=== PATIENT | male | born 1960 | race Caucasian/White ===

== ENCOUNTER 2025-10-22 08:45 | Day surgery (SDC) | payer MEDICARE, BC, SELFPAY ==
--- OUTSIDE RECORDS SUMMARY | 2025-08-05 09:58 | XMS_ITS | Continuity of Care Document ---
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 Role Phone Zen Cordoba MD Unavailable Unavailable Allergies, Adverse Reactions, Alerts Substance Reaction Status Criticality No Known Allergies Active No Inform ation Medications Medication Instructions Dosage Effective Dates (start - stop) Status Comments rosuvastatin 20 mg tablet take 1 tablet by oral route every day 20 MG - Active metoprolol succinate ER 25 mg tablet,extended release 24 hr take 1 tablet by oral route every day 25 MG - Active Repatha SureClick 140 mg/mL subcutaneous pen injector inject 1 milliliter by subcutaneous route every 2 weeks in the abdomen, thigh, or outer area of upper arm (rotate sites) 140 MG - Active isosorbide dinitrate 30 mg tablet take 1 tablet by oral route every day 30 MG - Active ezetimibe 10 mg tablet take 1 tablet by oral route every day 10 MG - Active aspirin 81 mg tablet,delayed release take 1 tablet by oral route every day 81 MG - Active Procedures Procedure Date Established Level 4 Moderate Colonoscopy Flex; W/remov Les- Colonoscopy Flex; W/bx 1/mx Ugi Endo; W/bx 1/mx Level Iv-surg Path Gross/micro Established Level 5 High Complex e/m visit add on Colonoscopy Flex; Dx (sep Pro) Advance Directives Directive Yes / No Effective Date File Name No Information Encounters Encounter Description Practice Location Reason(s) For Visit Diagnoses Date Provider Providers Copied on Encounter [facility], [address] [address], [place], [id number], [place] tel:[phone] [facility] No Information 5 Adalid Zaldivar. [address] [facility], [facility] [address], [place], [id number], [place]. tel:[phone] Established Level 4 Moderate [facility], [address] [address], [place], [id number], [place] tel:[phone] [facility] GI Symptoms or Concerns (chief complaint) Kenny's esophagus without dysplasiaGastro- esophageal reflux disease without esophagitisUnspe cified abdominal painRLQ abdominal pain 5 Adalid Zaldivar. [address] [facility], [facility] [address], [place], [id number], [place]. tel:[phone] Referring Provider: Referral Self, USE FOR SELF REFERRALS. [facility], [address] [address], [place], [id number], [place] tel:[phone] [facility] GI Symptoms or Concerns (chief complaint) Other fecal abnormalitiesUns pecified abdominal painGastro-esoph ageal reflux disease without esophagitisBenig n neoplasm of ascending colonBenign neoplasm of transverse colonBarrett's esophagus without dysplasiaEncount er for screening colonoscopy 5 Adalid Zaldivar. [address] [facility], [facility] [address], [place], [id number], [place]. tel:[phone] Referring Provider: Referral Self, USE FOR SELF REFERRALS. Established Level 5 High [facility], [address] [address], [place], [id number], [place] tel:[phone] [facility] GI Symptoms or Concerns (chief complaint) Abdominal pain, unspecified abdominal locationLoose stoolsChronic GERDPancreatic abnormality 5 Annie Donis. [address] [facility], [facility] [address], [place], [place], [id number], [place]. [phone] Referring Provider: Travis Nielsen, [address] [facility] [address], [place], [address]. tel:[phone] [facility], [address] [address], [place], [id number], [place] tel:[phone] [place] [address] No Information 5 Homer Nuno. [address] [facility], [facility] [address], [place], [id number], [place]. [phone] [facility], [address] [address], [place], [address], [place] tel:[phone] [facility] Personal history of colonic polypsFamily history of colon cancerEncounter for screening for malignant neoplasm of colonFamily history of malignant neoplasm of digestive organsPersonal history of colonic polyps 0 No Information Referring Provider: Travis Nielsen, [address] [facility] [address], [place], [address]. tel:[phone] [facility], [address] [address], [place], [id number], [place] tel:[phone] [facility] No Information 0 Mindy Sinha. [address] [facility], [facility] [address], [place], [id number], [place]. tel:[phone] Family History Family Member Type Diagnosis Age At Onset Mother Problem (finding) Cancer, colon Mother Problem (finding) Colon polyps Immunizations Vaccine Date Status Comments SARS-COV-2 (COVID-19) vaccin e, mRNA, spike protein, LNP, preservative free, iraida-sucrose, 30 mcg/0.3 mL dose administered Note: [facility] bi-direct ional interface ; Source: Other Registry Influenza, high-dose, split virus, trivalent, injectable, preservative free administered Note: [facility] bi-direct ional interface ; Source: Other Registry Respiratory syncytial virus (RSV), vaccine, bivalent, protein subunit RSV prefusion F, diluent reconstituted, 0.5 mL, preservative free administered Note: [facility] bi-direct ional interface ; Source: Other Registry Influenza, Madin Sheila Canin e Kidney, subunit, quadrivalent, injectable, preservative free administered Note: [facility] bi-directional interface ; Source: Other Registry Afluria Qd administered Note: [facility] bi-directional interface ; Source: Other Registry zoster vaccine recombinant administered N ote: [facility] bi-directional interface ; Source: Other Registry SARS-COV-2 (COVID-19) vaccin e, mRNA, spike protein, LNP, preservative free, 100 mcg/0.5mL dose or 50 mcg/0.25mL dose administered Note: [facility] bi -directional interface ; Source: Other Registry zoster vaccine recombinant administered N ote: [facility] bi-directional interface ; Source: Other Registry Influenza, recombinant, quadrivalent, injectable, preservative free administered Note: [facility] bi-direct ional interface ; Source: Other Registry SARS-COV-2 (COVID-19) vaccin e, mRNA, spike protein, LNP, preservative free, 100 mcg/0.5mL dose or 50 mcg/0.25mL dose administered Note: [facility] bi -directional interface ; Source: Other Registry SARS-COV-2 (COVID-19) vaccin e, mRNA, spike protein, LNP, preservative free, 100 mcg/0.5mL dose or 50 mcg/0.25mL dose administered Note: [facility] bi -directional interface ; Source: Other Registry SARS-COV-2 (COVID-19) vaccin e, mRNA, spike protein, LNP, preservative free, 100 mcg/0.5mL dose or 50 mcg/0.25mL dose administered Note: [facility] bi -directional interface ; Source: Other Registry Afluria Qd administered Note: [facility] bi-directional interface ; Source: Other Registry Afluria Qd administered Note: [facility] bi-directional interface ; Source: Other Registry Fluzone Quad 6mo or older administered Note: [facility] bi-direct ional interface ; Source: Other Registry tetanus and diphtheria toxoi ds, adsorbed, preservative free, for adult use (5 Lf of tetanus toxoid and 2 Lf of diphtheria toxoid) administered Note: [facility] bi-direct ional interface ; Source: Other Registry tetanus toxoid, reduced diphtheria toxoid, and acellular pertussis vaccine, adsorbed administered Note: [facility] b i-directional interface ; Source: Other Registry tetanus and diphtheria toxoi ds, adsorbed, preservative free, for adult use (5 Lf of tetanus toxoid and 2 Lf of diphtheria toxoid) administered Note: [facility] bi-direct ional interface ; Source: Other Registry Payers Payer name Insurance type Covered democrat ID Authoriza tion(s) No Information Social History Type Description Quantity Date Captured Comments Sex Male Smoking Status No Information Chief Complaint And Reason For Visit No Information Reason For Referral Reason For Referral No Information Plan Of Treatment Date Type Action Status Referral Ordered: follow-up visit after workup Appointment date/timeframe: after workup ordered History Of Present Illness Encounter Date Complaint History Of Prese nt Illness GI Symptoms or Concerns This is a 65-year-old man who presents in follow up for reflux and heartburn.He was previously seen by one of my partners. In April of this year, he presented with abdominal pain and loose stool. He underwent assessment, which included ultrasound in January with possible steatosis of the liver, CT with 1.5 cm non-enhancing mass in the pancreatic tail. 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 His upper endoscopy was remarkable only for 1 cm of salmon-like change in the distal esophagus suspicious for Kenny's. He does have a long history of reflux and tells me he has been on omeprazole 20 mg for at least 5 years, possibly longer. His breakthrough symptoms are rare and generally characterized by heartburn, worse at night and when lying flat, but again occur maybe a few times per year.He continues to have right lower quadrant pain that radiates to flank and sometimes worsened with activity such as golfing or working on a ladder, but then again at times improves at times with bowel movements. GI Symptoms or Concerns GI Symptoms or Concerns Mike is a pleasant 64-year-old male who is seen for evaluation of abdominal pain, loose stool, pancreatic imaging abnormality.The patient was in his usual state of health until end of December when he developed onset of abdominal pain. This is localized to his right middle, lower abdomen. He saw his primary care doctor who initially ordered an ultrasound and labs which were unrevealing. Subsequent CT of the abdomen demonstrated a possible pancreatic mass prompting MRI. 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 He is planned for SPECT-CT upcoming to further evaluate. He describes abdominal pain as localized to his right middle, lower abdomen. Pain is constant but worse in the morning. It can sometimes radiate around his back, dull, 4 out of 10. No change with intake of food. It is better when urinating, passing gas, passing a bowel movement. He has chronic loose stool with 3-4 bowel movements per day. This preceded onset of pain and has been present for several years. Stools can be urgent. No incontinence or nocturnal stools. No black or bloody stool.He has chronic GERD over the last many years for which he has used omeprazole 20 mg daily with improvement. He does not have breakthrough symptoms unless he misses a dose.He otherwise denies fevers, chills, weight loss, nausea, vomiting, black or bloody stool, dysphagia, odynophagia.Prior workup is reviewed– No prior upper endoscopy Colonoscopy 08/15/2020 notable for a normal exam. Recommended for repeat in 5 years. Ultrasound 02/19/2025 notable for normal biliary tract. No gallstones or changes of cholecystitis. Normal bile ducts. Suspected slight degree of diffuse fatty infiltration of the liver without hepatomegaly or hepatic cirrhosis. Elsewhere, no solid abdominal organ abnormality. Limited use of pancreas. Spleen not seen, but not enlarged. CT abdomen and pelvis with contrast 03/26/2025 notable for 1. Nonobstructing 3 mm intrarenal calculus. 2. Possible 1.5 cm enhancing mass in the pancreas tail. Recommend further evaluation with pancreas protocol MRI. 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 This could be confirmed with nuclear medicine SPECT CT.Past medical historyCoronary artery disease status post CABG, hyperlipidemia, obesity, GERD, adenomatous polyps, pancreatic finding as abovePast surgical historyNo prior abdominal surgeriesMedicationsRosuvastatin, Repatha, aspirin 81, isosorbide, ezetimibe, metoprolol, omeprazole 20Social historyNo toxic habits. He is retired, with 2 children.Family historyMom with colon cancer at age 45. Functional Status Date Functional Assessmen t No Information Instructions Date Instruction Additional Infor tai - Repeat EGD in one year for BE surveillance - Continue omeprazole 20mg once daily 30m prior to breakfast - Add Miralax 8.5g oral powder once per day Related to Kenny's esophagus without dysplasia Colon Cancer Prevention Related to Unspecified abdominal pain Colon Polyps Related to Unspe cified abdominal pain Diverticulosis/Diverticulitis Re lated to Unspecified abdominal pain Hemorrhoids (Internal) Related t o Unspecified abdominal pain Gastroesophageal Reflux Disease Related to Chronic GERD High Fiber Diet Related to Loose stools Assessments Type Assessment Date No Information Patient Care Teams Name Effective Dates (start - stop) Status Members No Information
[2025-10-22] VITALS (17 sets, daily range): BP systolic 116–147; BP diastolic 67–91; PULSE 70–88; RESP 12–18; TEMP 36.3–36.8; O2SAT 94–98; BMI 28.7
--- NOTE | 2025-10-22 09:27 | ED_ITS ---
HPI - Abdominal Pain General Chief Complaint: Abdominal Pain Stated Complaint: Abdominal pain Time Seen by Provider: 10/22/25 08:58 History of Present Illness HPI narrative: This 65-year-old male comes in reporting right-sided abdominal pain that comes and goes over the past month or so. He states that the pain at times has been very severe and lasting for a few hours. He thinks that it may be related to taking food. He reports the pain in the right side of his abdomen. He states that he did have an ultrasound 6 or 7 months ago which was negative for gallstones. He also had a couple CT scans and MRI and there was no significant finding. CT scan initially back then had some suspicion of a pancreatic mass but MRI showed accessory splenic tissue in this area and was benign. The patient does not report any fevers or altered bowel function. He is otherwise healthy. He states that he is currently having pain but not as severe as it has been in the recent past. He reports that the pain is worse with taking a deep breath. Related Data Allergies Allergy/AdvReac Type Severity Reaction Status Date / Time No Known Drug Allergies Allergy Verified 10/22/25 08:56 Review of Systems Status of ROS Reports: 10 or more systems reviewed and unremarkable except as noted in History and below Narrative Constitutional: No fevers, no weight gain or loss. Eyes: No discharge. No vision changes. HENT: No congestion, no sore throat, no ear pain. Cardiovascular: No chest pain, no palpitations. Respiratory: No shortness of breath, no wheezes, no cough. Gastrointestinal: No vomiting, no diarrhea. Abdominal pain as described above. Genitourinary: No dysuria, no hematuria. Musculoskeletal: Normal range of motion. Skin: No rashes, no pruritis. Neurological: No dizziness, weakness, sensory change, speech change. Endo/Heme/Allergies: No bruising or bleeding. No polydipsia. Pysch: no suicidality, no anxiety, no insomnia. All other systems reviewed and are negative. PFSH PFS Social History Smoking Status: Never smoker Do you use any of these nicotine containing products: None Second hand tobacco smoke exposure: No How often do you have a drink containing alcohol: never AUDIT-C Alcohol total score: 0 Non-prescribed substance use: denies use Exam Narrative: Exam Narrative: Constitutional: Well-developed, well-nourished, no acute distress. HEENT: Normocephalic, atraumatic. Neck: Normal range of motion. Nontender. Supple. Heart: Regular. No murmurs. Normal rate. Intact distal pulses. Lungs: Clear to auscultation. No chest discomfort. No wheezes, rhonchi, or rales. Abdomen: Normal bowel sounds. Tenderness in the right abdomen. Rebound tenderness is present. No particular pain at McBurney's point in the right lower quadrant. Genitalia: Deferred. Back: No midline tenderness. Normal range of motion. Extremities: Normal range of motion. No injury. Skin: Intact. No rash. Warm. No erythema or pallor. Neurologic: No altered sensation. No weakness. Alert and oriented. Psychiatric: No suicidality. No anxiety or depression. No insomnia. Nursing notes and vitals signs are reviewed. Const: Vital Signs, click to edit/add: Vital Signs - 24 hr 10/22/25 08:53 Temperature 97.5 F L Pulse Rate [Pulse Oximeter] 85 Respiratory Rate 18 Blood Pressure [Ri ght Upper Arm] 144/86 H Pulse Oximetry 98 Oxygen Delivery Me thod Room Air Course Vital Signs Vital signs: Initial Vital Signs Temperature 97.5 F L 10/22/25 08:53 Temperature Source Temporal Artery Scan 10/22/25 08:53 Pulse Rate 85 10/22/25 08:53 Pulse Rhythm Regular 10/22/25 08:53 Pulse Strength 3+ Normal 10/22/25 08:53 Respiratory Rate 18 10/22/25 08:53 Blood Pressure 144/86 H 10/22/25 08:53 Blood Pressure Mean 105 10/22/25 08:53 Blood Pressure Position Sitting 10/22/25 08:53 Pulse Oximetry 98 10/22/25 08:53 Oxygen Delivery Method Room Air 10/22/25 08:53 Vital Signs Temperature 97.5 F L 10/22/25 08:53 Pulse Rate 85 10/22/25 08:53 Respiratory Rate 18 10/22/25 08:53 Blood Pressure 144/86 H 10/22/25 08:53 Pulse Oximetry 98 10/22/25 08:53 Oxygen Delivery Method Room Air 10/22/25 08:53 Temperature 97.5 F L 10/22/25 08:53 Pulse Rate 85 10/22/25 08:53 Respiratory Rate 18 10/22/25 08:53 Blood Pressure 144/86 H 10/22/25 08:53 Pulse Oximetry 98 10/22/25 08:53 Oxygen Delivery Method Room Air 10/22/25 08:53 MDM - Abdominal Pain MDM Narrative Medical decision making narrative: This 65-year-old male comes in with right upper quadrant abdominal pain as described above. Ultrasound does show evidence of stones and sludge with a gallbladder wall that is thickened at around 6 mm. This is typical of cholecystitis. Labs are acquired and these returned with normal findings. He does not have any leukocytosis or elevated liver enzymes or elevated lipase. I did speak with Dr. Thompson, surgeon on-call who will arrange for cholecystectomy in the next couple hours. Lab Data Labs: Lab Results 10/22/25 Range/Units 11:00 WBC 9.08 (4.50-11.00) K/uL RBC 4.13 L (4.30-5.90) m/uL Hgb 12.3 L (13.5-17.5) gm/dL Hct 38.2 (37.0-53.0) % MCV 93 (80-100) fL MCH 30 (26-34) pg MCHC 32 (32-36) gm/dL RDW Coeff of Angela 13.0 (11.5-15.5) % Plt Count 212 (140-440) K/uL Neut % (Auto) 78.2 H (42.0-72.0) % Lymph % (Auto) 10.8 L (20-44) % [place] % (Auto) 9.1 (0.0-11.0) % Eos % (Auto) 1.8 (0.0-7.0) % Baso % (Auto) 0.1 (0.0-3.0) % Neut # (Auto) 7.10 H (1.7-7.0) K/uL Lymph # (Auto) 1.00 (0.90-2.90) K/uL [place] # (Auto) 0.80 (0.00-0.90) K/UL Eos # (Auto) 0.16 (0.00-0.50) K/uL Baso # (Auto) 0.01 (0.00-0.30) K/uL Abs Immat Gran (auto) 0.00 (0.00-0.30) K/uL Imm/Tot Granulo (auto) 0.0 % Total Bilirubin 1.5 (0.1-1.5) mg/dL Direct Bilirubin 0.3 (0.0-0.5) mg/dL AST 21 (12-35) U/L ALT 22 (4-50) U/L Alkaline Phosphatase 68 (40-150) U/L Total Protein 7.3 (6.0-8.3) g/dL Albumin 4.2 (3.3-5.0) g/dL Lipase 106 (23-300) U/L Discharge Plan Discharge Clinical Impression: Acute cholecystitis Patient Disposition: XFER to OR Condition: Unchanged Instructions: General Anesthesia (DC), NH+C Post-Operative Instructions: Laparoscopic Cholecystectomy Follow Up/Referrals: Provider,Not a Local [Primary Care Provider, Family Practice]
--- NOTE | 2025-10-22 09:27 | CRLHL7_ITS ---
For Patients: As a result of the Century Cures Act, medical imaging exams and procedure reports are released immediately into your electronic medical record. You may view this report before your referring provider. If you have questions, please contact your health care provider. Indication: Right upper quadrant abdominal pain. Technique: Sonography of the abdomen was performed. Technical limitation due to overlying bowel gas. Comparison: None Findings: The gallbladder wall is thickened at 6.4 millimeters. Intramural edema. No pericholecystic fluid. Sludge and small stones noted. The common duct measures 3 millimeters which is normal The liver measures 15.1 centimeters. Echogenicity is normal. Hepatic cysts are noted the largest of which measures 1.3 centimeters in greatest dimension. The pancreas is poorly seen due to overlying bowel gas. The right kidney is unremarkable in size and appearance measuring 10.7 x 7.0 x 5.8 centimeters. The aorta as visualized appears normal. No ascites. There was a positive sonographic Rinaldi`s sign The main portal vein is patent with appropriate directional flow Impression: Gallbladder wall thickening at 6.4 millimeters with intramural edema, stones and sludge. No pericholecystic fluid. No biliary ductal dilation. There was a reported sonographic Rinaldi sign. The findings are suspicious for acute cholecystitis in the appropriate clinical setting. Dictated by Yaakov Maria MD @ 10/22/2025 10:31:33 AM (Electronically Signed)
--- OUTSIDE RECORDS SUMMARY | 2025-10-22 09:57 | XMS_ITS | Clinical Summary ---
Author Organization [facility] Address [address] [place] [address] Care Team Providers Care Correctional Supply Supervisor Name Role Phone Cristofer Paredes MD Unavailable [phone] Ector Black MD Primary Care Provider [phone] [facility] Unavailable Eliseo Barron MD Unavailable [phone] Allergies No known active allergies Medications MedicationSigDispense QuantityRefillsLast FilledStart DateEnd DateStatus aspirin 81 mg oral enteric coated tablet Take 1 tablet (81 mg) by mouth once daily.Active Omeprazole 20 mg oral TbEC Take 20 mg by mouth once daily.Active fluticasone (FLONASE) 50 mcg/actuation nasal spray Instill 1 spray into EACH nare once daily.Active nitroGLYCERIN (NITROSTAT) 0.4 mg sublingual tablet Indications:Abnormal stress ECGTake 1 tablet (0.4 mg) under the tongue every 5 (five) minutes as needed for chest pain. 25 tablet 2Active evolocumab (REPATHA SURECLICK) 140 mg/mL SubQ PnIj Indications:Hyperlipidemia, unspecified hyperlipidemia typeInject 1 mL (140 mg) under the skin every 14 (fourteen) days. Requires annual fasting cholesterol la b. 2 mL 5Active metoprolol succinate, XL, (TOPROL XL) 25 mg oral extended release tablet 24 HR Take 1 tablet (25 mg) by mouth once daily. 90 tablet 5Active rosuvastatin (CRESTOR) 20 mg oral tablet Take 1 tablet (20 mg) by mouth once daily. 90 tablet 5Active evolocumab 140 mg/mL SubQ PnIj Indications:Pure hypercholesterolemiaInject 1 mL (140 mg) under the skin every 14 (fourteen) days. 6 mL 5Active isosorbide mononitrate (IMDUR) 30 mg oral extended release tablet 24 HR Indications:Coronary artery disease involving samish coronary artery of samish heart without angina pectoris,Chest pain, unspecified typeTAKE 1 TABLET BY MOUTH ONCE DAILY 90 tablet 5Active ezetimibe (ZETIA) 10 mg oral tablet TAKE 1 TABLET BY MOUTH ONCE DAILY 90 tablet 5Active Active Problems ProblemNoted DateDiagnosed DateCAD in samish mdwdox4306/08/2021hest pain, unspecified type05/24/2021 Overview (05/24/2021): Added automatically from request for surgery [id number] Abnormal stress test05/24/2021 Overview (05/24/2021): Added automatically from request for surgery [id number] S/P CABG x HLD (hyperlipidemia)02/09/2021oronary artery disease involving samish coronary artery of samish heart without angina pectoris 02/09/2021 Resolved Problems ProblemNoted DateDiagnosed DateResolved DateUnstable angina /24/2021 12/28/2020 Family History Medical HistoryRelationCommentsHeart DiseaseFatherColon CancerMotherRelation StatusCommentsFatherDeceasedMotherDeceased Social History Tobacco UseTypesPacks/DayYears UsedDateSmoking Tobacco: FormerCigarettesQuit: 2003Smokeless Tobacco: FormerQuit: 2003 Tobacco Cessation:Counseling Given: No Alcohol UseStandard Drinks/WeekCommentsYes0 (1 standard drink = 0.6 oz pure alcohol)2-3 per daySex and Gender InformationValueDate RecordedSex Assigned at BirthNot on fileLegal QqdXnfn1102/16/2013 3:46 AM CDTGender IdentityNot on file Sexual OrientationNot on file Last Filed Vital Signs Vital SignReadingTime TakenCommentsBlood Vfyhhrka460/6607 2:15 PM CDT Lmicr207805/24/2025 2:15 PM XWISgqedzdqgpn26.6 ??C (97.9 ??F)06/09/2021 11:07 AM CDTRespiratory Fvpj090406/09/2021 11:07 AM CDTOxygen Kqfbggncne22%02/11/2023 1:59 PM CDTInhaled Oxygen Concentration--Beyifo18.8 kg (195 lb 11.2 oz)03/10/2024 8:18 AM MTGEasjre801.3 cm (5' 9)05/24/2025 2:15 PM CDTBody Mass Index28.9 02/11/2023 1:59 PM CDT Plan of Treatment Health MaintenanceDue DateLast DoneCommentsAAA Ultrasound Oppdvzptq1960 Hepatitis C Wkcclzpsb1960Medicare Wellness Visit1960Depression Assessment (PHQ-2)1Pneumococcal 50+ Years (1 of 2 - PCV)1979 Yearly Review of HCD, 12/21/2020OVID-19 Vaccine (2 - 2024- season)/05/2024Influenza Vaccine (#1)509/, 07/11/2022, 11/24/2020, Additional history jlryxyJowjatojqtu87/04/202610/01/2016 Adult Tetanus Hbhbatj34/01/2019, 03/18/2009, 10/28/1998Zoster Vaccine Vackucmvq32/31/2022, 10/13/2021SV ZdrzmvhbVxxxeffon05/14/2023Meningococcal B VaccineAged OutNo longer eligible based on patient's age to complete this topic Medical Devices ImplantedTypeAreaManufacturerDevice IdentifierShelf Expiration DateModel / Serial / LotSynergy 2.5 X 8 - [id number] Implanted:Qty: 1 on 06/08/2021 [facility] [id number] / / [id number] Closure Device 6-7fr - [id number] Implanted:Qty: 1 on 06/08/2021 by Gel[facility]ly[facility]/A: [facility] [place] [id number] / NA / Procedures Procedure NamePriorityDate/TimeAssociated DiagnosisCommentsASC COLONOSOPYRoutine 07/31/2016 11:32 AM CDT from Last 3 Months or Most Recently Relevant to Health Maintenance Results * ASC Colonoscopy (07/31/2016 11:32 AM CDT)Specimen (Source)Anatomical Location / LateralityCollection Method / VolumeCollection TimeReceived Time07/31/2016 11:32 AM CDT Narrative TEST - 07/31/2016 12:12 PM CDT [facility] Patient Name: Mike Arechiga Procedure Date: 07/31/2016 11:32 AM Date of : 1960 Note Status: Finalized Attending MD: LG TIWARI MD Procedure: ? Colonoscopy Indications: ? High risk colon cancer surveillance: Personal history of colonic polyps Patient Profile: ? Last Colonoscopy: more than 3 years ago. Providers: ? LG TIWARI MD, MARCIA GUPTA RN Referring MD: ? ECTOR BLACK Medicines: ? Midazolam 4 mg IV, Fentanyl 100 micrograms IV Complications: ? No immediate complications. Procedure: ? Pre-Anesthesia Assessment: ? - Prior to the procedure, a History and Physical was performed, and ? patient medications and allergies were reviewed. The patient is ? competent. The risks and benefits of the procedure and the sedation ? options and risks were discussed with the patient. All questions were ? answered and informed consent was obtained. Patient identification and ? proposed procedure were verified by the physician in the pre-procedure ? area. Mental Status Examination: alert and oriented. Airway Examination: ? normal oropharyngeal airway and neck mobility. Respiratory Examination: ? clear to auscultation. CV Examination: normal. Prophylactic Antibiotics: ? The patient does not require prophylactic antibiotics. Prior ? Anticoagulants: The patient has taken no previous anticoagulant or ? antiplatelet agents. ASA Grade Assessment: II - A patient with mild ? systemic disease. After reviewing the risks and benefits, the patient ? was deemed in satisfactory condition to undergo the procedure. The ? anesthesia plan was to use minimal sedation / analgesia (anxiolysis). ? Immediately prior to administration of medications, the patient was ? re-assessed for adequacy to receive sedatives. The heart rate, ? respiratory rate, oxygen saturations, blood pressure, adequacy of ? pulmonary ventilation, and response to care were monitored throughout ? the procedure. The physical status of the patient was re-assessed after ? the procedure. ? - This assessment was completed at 00:10 AM, prior to the administration ? of sedation. ? After I obtained informed consent, the scope was passed under direct ? vision. Throughout the procedure, the patient's blood pressure, pulse, ? and oxygen saturations were monitored continuously. The Colonoscope was ? introduced through the anus and advanced to the terminal ileum. The ? colonoscopy was performed without difficulty. The patient tolerated the ? procedure well. The quality of the bowel preparation was good. Findings: ? The perianal and digital rectal examinations were normal. ? A 5 mm polyp was found in the transverse colon. The polyp was sessile. ? The polyp was removed with a cold biopsy forceps. Resection and ? retrieval were complete. ? A 8 mm polyp was found in the transverse colon. The polyp was sessile. ? The polyp was removed with a cold snare. Resection and retrieval were ? complete. ? Two sessile polyps were found in the rectum. The polyps were 5 mm in ? size. These polyps were removed with a cold biopsy forceps. Resection ? and retrieval were complete. ? Multiple small and large-mouthed diverticula were found in the sigmoid ? colon. ? Multiple small internal hemorrhoids. Impression: ? - One 5 mm polyp in the transverse colon. Resected and retrieved. ? - One 8 mm polyp in the transverse colon. Resected and retrieved. ? - Two 5 mm polyps in the rectum. Resected and retrieved. ? - Diverticulosis in the sigmoid colon. Recommendation: ? - High Fiber diet. ? - I will contact with biopsy results in 1-2 weeks. Please contact my ? office at [phone] for any questions. ? - Repeat colonoscopy in 5 years for surveillance. ? - Return to referring physician Marti TIWARI MD 07/31/2016 12:11:59 PM This report has been signed electronically.LG TIWARI MD Number of Addenda: 0 Note Initiated On: 07/31/2016 11:32 AM ? [address] [address], [address], [place] [address] Procedure Note Lg Tiwari MD - 07/31/2016 [facility] Patient Name: Mike Arechiga Procedure Date: 07/31/2016 11:32 AM Date of : 1960 Note Status: Finalized Attending MD: LG TIWARI MD Procedure: Colonoscopy Indications: High risk colon cancer surveillance: Personal history of colonicpolyps Patient Profile: Last Colonoscopy: more than 3 years ago. Providers: LG TIWARI MD, MARCIA GUPTA RN Referring MD: ECTOR BLACK Medicines: Midazolam 4 mg IV, Fentanyl 100 micrograms IV Complications: No immediate complications. Procedure: Pre-Anesthesia Assessment: - Prior to the procedure, a History and Physical was performed, and patient medications and allergies were reviewed. The patient is competent. The risks and benefits of the procedure and the sedation options and risks were discussed with the patient. All questions were answered and informed consent was obtained. Patient identificationand proposed procedure were verified by the physician in thepre-procedure area. Mental Status Examination: alert and oriented. AirwayExamination: normal oropharyngeal airway and neck mobility. RespiratoryExamination: clear to auscultation. CV Examination: normal. ProphylacticAntibiotics: The patient does not require prophylactic antibiotics. Prior Anticoagulants: The patient has taken no previous anticoagulant or antiplatelet agents. ASA Grade Assessment: II - A patient with mild systemic disease. After reviewing the risks and benefits, the patient was deemed in satisfactory condition to undergo the procedure. The anesthesia plan was to use minimal sedation / analgesia (anxiolysis). Immediately prior to administration of medications, the patient was re-assessed for adequacy to receive sedatives. The heart rate, respiratory rate, oxygen saturations, blood pressure, adequacy of pulmonary ventilation, and response to care were monitored throughout the procedure. The physical status of the patient was re-assessedafter the procedure. - This assessment was completed at 00:10 AM, prior to theadministration of sedation. After I obtained informed consent, the scope was passed under direct vision. Throughout the procedure, the patient's blood pressure,pulse, and oxygen saturations were monitored continuously. The Colonoscopewas introduced through the anus and advanced to the terminal ileum. The colonoscopy was performed without difficulty. The patient toleratedthe procedure well. The quality of the bowel preparation was good. Findings: The perianal and digital rectal examinations were normal. A 5 mm polyp was found in the transverse colon. The polyp wassessile. The polyp was removed with a cold biopsy forceps. Resection and retrieval were complete. A 8 mm polyp was found in the transverse colon. The polyp wassessile. The polyp was removed with a cold snare. Resection and retrieval were complete. Two sessile polyps were found in the rectum. The polyps were 5 mm in size. These polyps were removed with a cold biopsy forceps. Resection and retrieval were complete. Multiple small and large-mouthed diverticula were found in thesigmoid colon. Multiple small internal hemorrhoids. Impression: - One 5 mm polyp in the transverse colon. Resected and retrieved. - One 8 mm polyp in the transverse colon. Resected and retrieved. - Two 5 mm polyps in the rectum. Resected and retrieved. - Diverticulosis in the sigmoid colon. Recommendation: - High Fiber diet. - I will contact with biopsy results in 1-2 weeks. Please contact my office at [phone] for any questions. - Repeat colonoscopy in 5 years for surveillance. - Return to referring physician Marti TIWARI MD 07/31/2016 12:11:59 PM This report has been signed electronically.LG TIWARI MD Number of Addenda: 0 Note Initiated On: 07/31/2016 11:32 AM [id number] [facility] [address], [address], [place] [address] Authorizing ProviderResult TypeResult StatusLg Tiwari MDPROCEDURE ORDERABLE Final ResultPerforming OrganizationAddressCity/State/ZIP CodePhone Number TEST from Last 3 Months or Most Recently Relevant to Health Maintenance Insurance * Guarantor: Mike ArechigaAccoaron TypeRelation to PatientDate of PhoneBilling AddressPersonal/XpfwbuXzvk1960 [address] [place] [address] * Guarantor: Mike ArechigaAccount TypeRelation to PatientDate of PhoneBilling AddressPersonal/DzhggpJhjp1960 [address] [place] [address] * Guarantor: Mike ArechigaAccoaron TypeRelation to PatientDate of PhoneBilling AddressPersonal/GwukeoPssk16/17/[address] [place] [address] Advance Directives For more information, please contact: [phone] * Full Code (Latest Code Status on File) Date ActivatedDate InactivatedComments06/08/2021 12:04 PM06/09/2021 5:37 PM QuestionAnswerCommentsHow was code status determined?* Patient * Full Code Date ActivatedDate InactivatedComments12/21/2020 8:55 PM12/28/2020 6:11 PMQuestion AnswerCommentsHow was code status determined?* Physician Determined Care Teams Team MemberRelationshipSpecialtyStart DateEnd Date Ector Black MD [address] [facility] [address] [address] [facility] - [facility]/16 Physicians-Jenaie Bell [address] [facility] [address] [address] PCP - Primary Care Clinic12/08/20 Eliseo Barron MD [address] [facility] [address] [place] [address] PCP - CardiologistCardiovascular Disease05/24/25 Cristofer Paredes MD Gastroenterology06/21/16
--- OUTSIDE RECORDS SUMMARY | 2025-10-22 09:57 | XMS_ITS | Clinical Summary ---
Author Organization [facility] Address [address] [place] [address] Care Team Providers Care Industrial Chemistry Teacher Name Role Phone Travis Wagner MD Primary Care Provider [phone] Allergies No known active allergies Medications MedicationSigDispense QuantityRefillsLast FilledStart DateEnd DateStatus nitroGLYcerin (NITROSTAT) 0.[address] 0.4 mg under the rvpnpw7409/25/2021ctive metoprolol succinate ER (TOPROL XL) 25 MG 24 hr tablet Take 25 mg by mouth07/04/2021ctive rosuvastatin (CRESTOR) 40 MG tablet Take 40 mg by mouth01/12/2021ctive isosorbide mononitrate (IMDUR) 30 MG 24 hr tablet Take 30 mg by mouth02/20/2022ctive fluticasone (FLONASE) 50 MCG/ACT nasal spray [place] 1 spray in tmuuuse8407/04/2021ctive ezetimibe (ZETIA) 10 MG tablet Take 10 mg by mouth02/06/2022ctive aspirin (ASA) 81 MG EC tablet Take 81 mg by mouthActive omeprazole (PRILOSEC OTC) 20 MG EC tablet Take 20 mg by mouthActive Active Problems No known active problems Social History Tobacco UseTypesPacks/DayYears UsedDateSmoking Tobacco: Never AssessedAdolescent EducationAnswerDate RecordedGetting School Help NeededNot on file08/03/2023Sex and Gender InformationValueDate RecordedSex Assigned at BirthNot on fileLegal UfuIfmz94/04/2012 4:55 AM CSTGender IdentityNot on fileSexual OrientationNot on file Last Filed Vital Signs Vital SignReadingTime TakenCommentsBlood Bbxzunze737/801 8:05 PM CDT Caluh496208/31/2022 8:05 PM ILMMbsytzjzvwz84.4 ??C (97.6 ??F)08/31/2022 4:37 PM CDTRespiratory Nhxj826308/31/2022 8:05 PM CDTOxygen Zjjqgppwzo08%08/31/2022 8:05 PM CDTInhaled Oxygen Concentration--Josvzs57.3 kg (177 lb)08/31/2022 4:37 PM CDT Height--Body Mass Index-- Plan of Treatment Not on file Insurance * Guarantor: Mike Sellers EAccount TypeRelation to PatientDate of BirthPhone Billing AddressPersonal/QnxbagEjef1960 [address] [place] [address] Care Teams Team MemberRelationshipSpecialtyStart DateEnd Date Travis Wagner MD [facility] [address] [place] [address] PCP - GeneralFamily Ssevxazp31/4/22
--- OUTSIDE RECORDS SUMMARY | 2025-10-22 09:57 | XMS_ITS | Clinical Summary ---
Author Organization [facility] Address [address] [place] [address] Care Team Providers Care Web Interface Developer Name Role Phone Frederick Vaughn Primary Care Provider Unavailabl e Source Comments You are receiving this document as you are listed as the primary care provider,follow-up provider, or the patient has been referred to you for consultation.This is in compliance with the Medicare andMedicaid EHR Incentive Program,which states Providers who transition their patient to another setting of careor provider of care or refers their patient to another provider of care shouldprovide summary care record for each transition of care or referral. [facility] Allergies No known active allergies Medications MedicationSigDispense QuantityRefillsLast FilledStart DateEnd DateStatus clopidogrel (PLAVIX) 75 MG tablet 07/02/2021ctive fluticasone propionate (FLONASE) 50 MCG/ACT nasal solution 07/04/2021ctive metoprolol succinate (TOPROL XL) 25 MG 24 hour release tablet 07/04/2021ctive rosuvastatin (CRESTOR) 40 MG tablet 07/04/2021ctive meloxicam (MOBIC) 7.5 MG tablet Take 1 Tablet (7.5 mg) by mouth daily. 30 Tablet ctive Social History Tobacco UseTypesPacks/DayYears UsedDateSmoking Tobacco: NeverSmokeless Tobacco: NeverSex and Gender InformationValueDate RecordedSex Assigned at BirthNot on fileLegal BikNrtk1002/12/2015 9:19 AM CDTGender IdentityNot on fileSexual OrientationNot on file Last Filed Vital Signs Vital SignReadingTime TakenCommentsBlood Pjntarze664/8210 11:25 AM CDT Pulse--Teawsefigcb06.3 ??C (97.3 ??F)07/20/2022 12:54 PM CDTRespiratory Rate-- Oxygen Saturation--Inhaled Oxygen Concentration--Fvwaug78.7 kg (178 lb) 09/14/2021 2:00 PM ZHVNzzmkz636.7 cm (5' 8)09/14/2021 2:00 PM CSTBody Mass Index27.0609/14/2021 2:00 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 Plan of Treatment Health MaintenanceDue DateLast DoneCommentsColon Cancer Screening Plan Due 1960Hep C Screening (Preventive Services)1960PSA Screening Cabdyiudpp1960Adult Preventive Visit05/13/19781985Ziynvvbkhfi82/17/1995 Pneumococcal Vaccine 50+ Yrs (1 of 1 - PCV)2010COVID-19 Vaccine (5 - season)505/02/2022, 09/29/2021, 02/21/2021, Additional history existsInfluenza Vaccine (#1)509/, 09/29/2021, 11/24/2020, Additional history existsDTaP/Tdap/Td Vaccine (3 - Tdap)/01/2019, 03/18/2009, 10/28/1998RSV Vaccine (1 - 1-dose 75+ series)2035 Zoster/Shingles KlckfucGiykumkgt84/31/2022, 10/13/2021HepA VaccineAged OutNo longer eligible based on patient's age to complete this topicHepB VaccineAged OutNo longer eligible based on patient's age to complete this topicHib Vaccine Aged OutNo longer eligible based on patient's age to complete this topicIPV (Polio) VaccineAged OutNo longer eligible based on patient's age to complete this topicMCV4 VaccineAged OutNo longer eligible based on patient's age to complete this topicMeningococcal B VaccineAged OutNo longer eligible based on patient's age to complete this topic Insurance * Guarantor: Mike Sellers EAccount TypeRelation to PatientDate of BirthPhone Billing AddressPersonal/WceueuEgpz1960 [address] [place] [address] Care Teams Team MemberRelationshipSpecialtyStart DateEnd Date Frederick Vaughn PCP - General01/26/11
[2025-10-22 11:14] LABS: Hematocrit* 38.2 % (37.0-53.0); Hemoglobin* 12.3 gm/dL (13.5-17.5); Immature Granulocytes Abs Auto 0.00 K/uL (0.00-0.30); Immature Granulocytes Pct Auto 0.0 %; Mean Corpuscular HGB Conc 32 gm/dL (32-36); Mean Corpuscular Hemoglobin 30 pg (26-34); Mean Corpuscular Volume 93 fL (80-100); RDW Coefficient of Variation % 13.0 % (11.5-15.5); Red Blood Count* 4.13 m/uL (4.30-5.90); White Blood Count* 9.08 K/uL (4.50-11.00)
[2025-10-22 11:18] LABS: Lymphocytes Absolute Auto 1.00 K/uL (0.90-2.90); Slide Review Reflex No
[2025-10-22 11:23] LABS: Albumin* 4.2 g/dL (3.3-5.0)
[2025-10-22 11:26] LABS: Alanine Aminotransferase* 22 U/L (4-50); Alkaline Phosphatase* 68 U/L (40-150); Aspartate Amino Transferase* 21 U/L (12-35); Bilirubin Direct* 0.3 mg/dL (0.0-0.5); Bilirubin Total* 1.5 mg/dL (0.1-1.5); Total Protein* 7.3 g/dL (6.0-8.3)
--- NOTE | 2025-10-22 13:00 | PM.GSCN ---
History of Present Illness Consult details Date Seen: 10/22/25 Consult date: 10/22/25 Narrative: 65-year-old male presented to emergency room with right upper quadrant pain. Patient pain developed 2 days ago at 2 in the morning. He had fatty appetite eyes ears for dinner that day. The pain was severe and lasted several hours, patient could not get comfortable. Patient had nausea but no vomiting. He was passing gas. Patient has bowel movement was yesterday. Patient continued to have pain and the pain was so severe that he decided to present to the emergency room. Patient had similar episodes in the past since December. He would have a painful episodes that last several hours and then spontaneously resolve. He had a workup of this pain in the past with an ultrasound and subsequent CT scan. His abdominal CT showed pancreatic mass that was then followed by abdominal MRI. 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 This was confirmed by a nuclear test. I personally reviewed patient's workup in the emergency room today. His WBC was normal. His liver function tests were normal. An abdominal ultrasound was obtained that showed cholelithiasis with sludge, the gallbladder wall was 6 mm thick with intramural edema, the common bile duct was normal in size. Of note, patient lives in [facility] and is driving to [place] to stay there for 3 months. He was visiting friends near [facility]. Review of Systems Narrative: General: no fevers HENT: no problems swallowing CV: no shortness of breath Resp: no cough GI: No nausea, vomiting, abdominal pain : no dysuria, no increased urinary frequency, no hematuria Skin: no new rashes Musculoskeletal: no back pain Neuro: no muscle weakness Psyche: no depression, no anxiety PFSH PFSH Surgical History (Updated 10/22/25 @ 13:03 by Thai Valdez MD) H/O jaw surgery ?Z98.890 - Other specified postprocedural states (ICD-10) S/P CABG x 3 ?Z95.1 - Presence of aortocoronary bypass graft (ICD-10) Social History (Updated 10/22/25 @ 13:03 by Thai Valdez MD) Narrative: retired Smoking Status: Never smoker Do you use any of these nicotine containing products: None Second hand tobacco smoke exposure: No How often do you have a drink containing alcohol: never AUDIT-C Alcohol total score: 0 Non-prescribed substance use: denies use Meds Home Medications and Allergies Allergies Allergy/AdvReac Type Severity Reaction Status Date / Time No Known Drug Allergies Allergy Verified 10/22/25 08:56 Exam Narrative: Exam Narrative: General appearance: Alert, cooperative, and in no distress Pulmonary: Chest symmetric, lungs clear bilaterally Cardiovascular Heart: Regular rate and rhythm, S1, S2, no murmurs/rubs/gallops Gastrointestinal Abdominal: soft, not distended, Tender to palpation in the right lower quadrant and more tenderness to palpation in the right upper quadrant with positive Rinaldi sign. Skin: Normal skin color, texture, and turgor. No rashes or lesions. Psychiatric: Alert, cooperative, normal affect. Const: Vital Signs, click to edit/add: Vital Signs - 24 hr 10/22/25 08:53 10/22/25 12:53 Temperature 97.5 F L Pulse Rate [Pulse Oximeter] 85 88 Respiratory Rate 18 18 Blood Pressure [Ri ght Upper Arm] 144/86 H 147/91 H Pulse Oximetry 98 98 Oxygen Delivery Me thod Room Air Room Air Results Labs Labs: Abnormal lab results 10/22/25 Range/Units 11:00 RBC 4.13 L (4.30-5.90) m/uL Hgb 12.3 L (13.5-17.5) gm/dL Neut % (Auto) 78.2 H (42.0-72.0) % Lymph % (Auto) 10.8 L (20-44) % Neut # (Auto) 7.10 H (1.7-7.0) K/uL Diabetes panel 10/22/25 Range/Units 11:00 AST 21 (12-35) U/L ALT 22 (4-50) U/L Alkaline Phosphatase 68 (40-150) U/L Total Protein 7.3 (6.0-8.3) g/dL Albumin 4.2 (3.3-5.0) g/dL Calcium panel 10/22/25 Range/Units 11:00 Albumin 4.2 (3.3-5.0) g/dL Adrenal panel 10/22/25 Range/Units 11:00 Total Bilirubin 1.5 (0.1-1.5) mg/dL AST 21 (12-35) U/L ALT 22 (4-50) U/L Alkaline Phosphatase 68 (40-150) U/L Total Protein 7.3 (6.0-8.3) g/dL Albumin 4.2 (3.3-5.0) g/dL All other labs normal. Progress Note:A&P Assessment and plan (1) Acute cholecystitis: Status: Acute Plan 65-year-old male presents with acute on chronic cholecystitis. I discussed with the patient my clinical findings. We talked about his laboratory and ultrasound findings. Patient's ultrasound shows gallbladder wall thickening with intramural edema. On clinical exam patient had positive Rinaldi sign. These findings are concerning for acute cholecystitis. I recommended to proceed with laparoscopic cholecystectomy. The procedure was discussed in detail. The risks associated procedure including infection, bleeding, injury to intra-abdominal organs, and injury to the common bile duct, as well as other additional procedures were all discussed with the patient, and he agreed to proceed.
--- NOTE | 2025-10-22 13:05 | P.GSOP_ITS ---
Operative Note Date of procedure: 10/22/25 Pre-op diagnosis: 1. Acute on chronic cholecystitis. Post-op diagnosis: 1. Acute cholecystitis. Type of Procedure: 1. Laparoscopic cholecystectomy. Indications: 65-year-old male presented to emergency room with right upper quadrant pain that started about 48 hours prior to his presentation. The pain was persistent. He had similar painful episodes in the past that would resolve spontaneously. This painful episodes started after eating fatty appetite is worse for dinner. Patient had nausea but no vomiting. He was passing gas. Upon his workup he was found to have normal WBC and normal liver function tests. A gallbladder ultrasound was obtained that showed thickened gallbladder wall with intramural edema, there was presence of cholelithiasis, the common bile duct was 6 mm. On clinical exam patient had tenderness to palpation in the right upper quadrant with positive Rinaldi sign. Given patient's clinical history and his physical exam, acute cholecystitis was suspected, and laparoscopic cholecystectomy was recommended. The procedure was discussed in detail. The risks associated procedure including infection, bleeding, injury to intra-abdominal organs, injury to the common bile duct, and other complications were all discussed with the patient, and he agreed to proceed. Procedure Description: After discussing the risks and benefits of the procedure, the patient signed informed consent.? The operative site was marked and the patient was brought to the operating room and placed on the operating table in supine position.? Care was taken to pad the patient's pressure points.?? The patient was then intubated by anesthesia.?? The operative site was then prepped and draped in the usual sterile fashion.? A time-out was then performed. A 5-mm laparoscopy port was placed in the left upper quadrant guided by a 5-mm laparoscope placed into a translucent trochar.~ Passage through the layers of the abdominal wall was visualized with the laparoscope.~ A pneumoperitoneum was established. A 0-degree 5-mm laparoscope was advanced into the abdomen. The abdomen was briefly surveyed, and no adhesions were noted. A 10-mm port were placed infraumbilically and two more 5 mm ports were placed on the right under direct visualization by laparoscope. The camera was then changed to 10 mm 30- degree scope and placed into the abdomen through the 10 mm port. The left upper quadrant port entrance was examined and no injury to intra-abdominal organs was identified. Intra-abdominal omental adhesions were noted in the left upper quadrant. Those were lysed with hook cautery. At first it was difficult to identify the gallbladder. The omentum and transverse colon was overlying the gallbladder fundus. These adhesions were taken down bluntly with suction tip and with hook cautery. Fibrin is exudate was noted over the transverse colon. The gallbladder fundus was then grasped and retracted cephalad. The infundibulum was grasped and retracted laterally, exposing the peritoneum overlying the triangle of Calot. Omentum was adherent to the infundibulum, and those adhesions were taken down bluntly and with hook cautery. Thick rind was found over the infundibulum. This was then carefully peeled and dissected bluntly with [place] dissected. Common bile duct was not identified but care was taken not to injure it. The cystic duct was clearly identified and bluntly dissected circumferentially. I stayed close to the infu ndibulum to avoid injury to the common bile duct. The cystic artery was identified in the medial triangle of Calot. This was circumferentially dissected. Two small branches from the artery were going into the gallbladder infundibulum. These branches were clipped with 5 mm clip adjacent to the artery and divided with hook cautery near the gallbladder infundibulum. The cystic duct was clearly going into the gallbladder. The cystic duct was then clipped with two 5 mm clips on the patient's side. These clips barely went across the cystic duct. The clips were placed on the infundibulum side and the cystic duct was then divided with scissors between the clips. Since the clips barely went across the cystic duct stump, I elected to place 0-0 Prolene endoloop just proximal to the cystic duct stump clips. Dark green bile came out from the gallbladder. This was suctioned out. The cystic artery was then clipped with 2 5 mm clips on the patient's side and a single clip on the specimen side and divided with scissors. The gallbladder was then dissected from the liver in the retrograde fashion with hook cautery. This dissection was difficult due to thickened rind around the gallbladder and the difficulty to identify the plane between the gallbladder and the liver. During manipulation of the gallbladder, dark green bile spilled into the abdominal cavity. This was suctioned out. No stones were seen. When the gallbladder was free from the liver, it was placed into an Endo-Catch bag and removed through the infraumbilical incision. Surgical site was examined for bleeding. Slow bleeding was seen from the gallbladder fossa. This was controlled with hook cautery. No further bleeding was seen in the surgical field. The right upper quadrant surgical field was irrigated with normal saline. All clips were intact. The fascia of the infraumbilical incision was then closed with 0-0 vicryl under direct visualization. This closure was examined intra-abdominally, and no intr a-abdominal structures were incarcerated in the closure. Pneumoperitoneum was completely reduced after viewing removal of the trocars under direct vision. The skin was then closed with 4-0 monocryl and steristrips were applied. Instrument, sponge, and needle counts were correct at closure and at the conclusion of the case. The patient was transferred to PACU in stable condition. Findings: Acute cholecystitis with fibrin is exudate around the gallbladder, no purulence noted. The bile spilled from the gallbladder and was dark green, no stones spilled into abdominal cavity. Anesthesia: GETA Surgeon: Thai Valdez MD Estimated blood loss (mL): 5 Specimen: Gallbladder Condition: stable Disposition: PACU
[2025-10-22] MEDS: PIPERACILLIN/TAZOBACTAM 3.375 GM INJ IVPB (13:15)
--- NOTE | 2025-10-22 15:08 | P.ANES_ITS ---
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
--- NOTE | 2025-10-22 15:08 | W.ANESCHARGE ---
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
[2025-10-22] MEDS: LACTATED RINGERS 1000 ML 1,000 ML 100 ML IV ×2 (15:27→15:56)
[2025-10-22] MEDS: HYDROCODONE-ACETAMIN 5-325 MG 1 TAB PO (18:45)
[2025-10-22] MEDS: PIPERACILLIN/TAZOBACTAM 3.375 GM in 0.9 % SODIUM CHLORIDE Mini-bag 100 ML IVPB (19:08)
--- NOTE | 2025-10-22 20:32 | PC.NURSE ---
Discharge summary: The pt has been alert and oriented x4; denied chest pain and short of breath. The abdominal lab sites x4 incision intact with steri strip; small old dried blood noted at the site. The pt ate regular diet and tolerated well without any nausea or increased pain. Urinated 800 ml of yellowish urine. The 1900 IV antibiotic was given as ordered. The pt ambulated in the room- tolerated the activity without any increased pain. Discharged instruction was reviewed with the pt and pt's spouse- they both verbalize understanding the instructions. The pt appeared without any acute distress at d/c time
== END 2025-10-22 20:20 | disposition home or self-care (01) ==
LOC: ED 12:47 → OR 13:05 → MEDSURG 16:11
PROVIDERS: Emergency Provider Emergency Medicine Emergency Medical Services; Visit Provider Surgery
PROC: 0FT44ZZ Resection of Gallbladder, Percutaneous Endoscopic Approach (ICD-10-PCS; CPT 47562; principal; 2025-10-22 13:00)
DX: K81.0 Acute cholecystitis (principal); K82.8 Other specified diseases of gallbladder
CPT/HCPCS: 47562; 00790; 36415; 76705; 80076; 83690; 85025; 93005; 99284; 99285; A9270; J0330; J1100; J2250; J2371; J2405; J2543; J2704; J3010; J3490; J7120